=== PATIENT | female | born 1995 | race Two or more races ===

== ENCOUNTER 2018-04-09 16:41 | Emergency (ER) | payer SELFPAY ==
[2018-04-09] MEDS ORDERED: IPRATROPIUM/ALBUTEROL 0.5-2.5 MG/3 ML AMPUL NEB ONE (17:14)
[2018-04-09] MEDS ORDERED: PREDNISONE 20 MG TABLET PO ONE (17:15)
--- NOTE | 2018-04-09 18:14 | RADIOLOGY REPORT (SQ) ---
EXAM DESCRIPTION: CHEST 2 VIEWS COMPLETED DATE/TIME: 04/09/2018 5:33 pm REASON FOR STUDY: cough, fever, eval for pneumonia COMPARISON: None. EXAM PARAMETERS: NUMBER OF VIEWS: two views TECHNIQUE: Digital Frontal and Lateral radiographic views of the chest acquired. RADIATION DOSE: NA LIMITATIONS: none FINDINGS: LUNGS AND PLEURA: No opacities, masses or pneumothorax. No pleural effusion. MEDIASTINUM AND HILAR STRUCTURES: No masses or contour abnormalities. HEART AND VASCULAR STRUCTURES: Heart normal size. No evidence for failure. BONES: No acute findings. HARDWARE: None in the chest. OTHER: No other significant finding. IMPRESSION: NO ACUTE RADIOGRAPHIC FINDING IN THE CHEST. TECHNICAL DOCUMENTATION: JOB ID: [id number] [email or web address]- All Rights Reserved Reading location - IP/workstation name: [email or web address]
--- NOTE | 2018-04-09 19:20 | ER Document Report ---
HPI - HPI Time Seen by Provider: 04/09/18 17:07 Pain Level: 2 - ROS Notes: Patient is an otherwise healthy 22-year-old female presenting with multiple complaints. Patient reports productive cough over the last 2 weeks with development of sore throat and fever over the last 2-3 days. Patient denies any fever today. Patient reports pain with swallowing however she is able to swallow. Patient reports history of strep throat. is going on today. Patient denies any history of asthma - CONSTITUTIONAL Constitutional: REPORTS: Fever, Chills - EENT EENT: REPORTS: Sore Throat - RESPIRATORY Respiratory: REPORTS: Coughing - REPRODUCTIVE Reproductive: DENIES: : Past Medical History - General Information source: Patient - Social History Smoking Status: Current Some Day Smoker Frequency of alcohol use: Occasional Drug Abuse: None Family History: None Patient has suicidal ideation: No Patient has homicidal ideation: No - Medical History Medical History: Negative Renal/ Medical History: Denies: Hx Peritoneal Dialysis Past Surgical History: Reports: Hx Abdominal Surgery, Hx Tonsillectomy - Immunizations Immunizations up to date: Yes Vertical Provider Document - CONSTITUTIONAL Notes: PHYSICAL EXAMINATION: GENERAL: Well-appearing, well-nourished and in no acute distress. HEAD: Atraumatic, normocephalic. EYES: Pupils equal round extraocular movements intact, conjunctiva are normal. ENT: Nares patent, throat mildly erythematous with no evidence of abscess. NECK: Normal range of motion, mildly swollen cervical lymph nodes. LUNGS: No respiratory distress, mild expiratory wheezing noted bilaterally. Musculoskeletal: Normal range of motion NEUROLOGICAL: Normal speech, normal gait. PSYCH: Normal mood, normal affect. SKIN: Warm, Dry, normal turgor, no rashes or lesions noted. Course - Re-evaluation Re-evalutation: Rapid strep is negative. Chest x-ray negative for any acute findings. Patient reports some improvement after breathing treatment. Patient was offered inject ion of Decadron however patient declined it stating that she is deathly afraid of needles. Patient given dose of prednisone and given prescription for albuterol and Tessalon. - Vital Signs Vital signs: Temp Pulse Resp BP Pulse Ox 98.9 F 94 14 147/80 H 100 04/09/18 16:56 04/09/18 16:56 04/09/18 16:56 04/09/18 16:56 04/09/18 16:56 Discharge - Discharge Clinical Impression: Sore throat Condition: Stable Disposition: HOME, SELF-CARE Additional Instructions: SORE THROAT: Sore throats may be caused by viruses, bacteria, or fungi. Most are due to a virus, and must get better on their own. Bacterial sore throats, particularly those due to "strep," need treatment with antibiotics. If an antibiotic is prescribed, be sure to take the medication for a full 10 days. Failure to take the antibiotic can result in complications such as rheumatic fever. Sometimes, an injection of antibiotics is given instead of pills or liquid. This single "shot" is equal in effectiveness to the oral medication. To relieve symptoms, take acetaminophen for pain. Sip clear liquids frequently, or eat popsicles or ice chips. Anesthetic sprays or lozenges may help. Make sure the air in the room is not too dry. Avoid using decongestants or antihistamines. Call the doctor if there is no improvement in two days, or if you have difficulty breathing, increasing throat pain, high fever, rash, or frequent vomiting. STEROID MEDICATION: You have been given a medicine of the cortisone/steroid class. This medication is used to control inflammation or allergy. It is usually only given for a short period of time, until the acute process subsides. There are usually no side effects from short-term use of cortisone-like medications. Some persons feel an increased sense of well-being and are not sleepy at bedtime. Long-term use of cortisone medications is best avoided, unless required for a severe condition. If your condition does not remit, or relapses after the course of corticosteroid medication, you should consult your physician. FOLLOW-UP CARE: If you have been referred to a physician for follow-up care, call the physicians office for an appointment as you were instructed or within the next two days. If you experience worsening or a significant change in your symptoms, notify the physician immediately or return to the Emergency Department at any t [place] for re-evaluation. Your rapid strep test today was negative. This will be sent for culture, if any abnormality comes of it we will call you in the next 2-3 days. Please continue to take Tylenol or ibuprofen for your throat pain. The steroids that you are being started on will help, take 1 dose each day for the next 4 days starting tomorrow as you were already given the first dose today. Use the cough medicine as needed. Drink plenty of fluids. Prescriptions: Benzonatate [Tessalon Perles 100 mg Capsule] 100 mg PO Q8HP PRN #40 capsule PRN Reason: Albuterol Sulfate [Proair HFA Inhalation Aerosol 8.5 gm MDI] 1 puff IH Q4 PRN #1 mdi PRN Reason: Prednisone [Deltasone 20 mg Tablet] 3 tab PO DAILY 4 Days #12 tablet Forms: Return to Work
[2018-04-09] MEDS ORDERED: ONDANSETRON ODT 4 MG TAB (6 TAB/ER DISP) PO PRN (19:40)
[2018-04-09] MEDS ORDERED: ALBUTEROL SULFATE HFA (90 MCG/PUFF) 8 GM MDI (1 MDI/ER DISP) IH ONE (19:41)
[2018-04-09 19:50] VITALS: BP 126/66
== END 2018-04-09 19:56 | disposition home or self-care (01) ==
LOC: ER 16:41
DX: J02.9 Acute pharyngitis, unspecified (principal); R05 Cough; F17.200 Nicotine dependence, unspecified, uncomplicated
CPT/HCPCS: 94640; 99283; 87070; 87880; 71046; J7512; J3490; J7620

== ENCOUNTER 2018-05-15 10:52 | Emergency (ER) | payer OTHER ==
[2018-05-15] MEDS ORDERED: DIPH/PERTUSS(ACELL)/TETANUS VAC/PF 0.5 ML SYR (>=10YO) IM ONE (11:36)
--- NOTE | 2018-05-15 11:41 | ER Document Report ---
HPI - HPI Time Seen by Provider: 05/15/18 11:23 Pain Level: 2 Notes: Patient is a 22-year-old female no significant past medical history who presents to emergency department complaining of a mike nail going through her boot into her right foot when at work prior to arrival. Patient states that she did have some minimal bleeding and has some associated mild soreness, but is otherwise able to ambulate. Patient states that the nail was relatively clean and was intact when she it came out. Denies drug allergies. No other concerns or complaints. Her last tetanus was believed to be over 5 years ago. Denies any headache, fever, URI, sore throat, chest pain, palpitations, syncope, cough, shortness of breath, wheeze, dyspnea, abdominal pain, nausea/vomiting/diarrhea, urinary retention, dysuria, hematuria, loss of control of bowel or bladder, numbness/tingling, muscle paralysis/weakness, or rash. - ROS Systems Reviewed and Negative: Yes All other systems reviewed and negative - REPRODUCTIVE Reproductive: DENIES: : Past Medical History - Social History Smoking Status: Never Smoker Family History: None Renal/ Medical History: Denies: Hx Peritoneal Dialysis Past Surgical History: Reports: Hx Abdominal Surgery, Hx Tonsillectomy - Immunizations Immunizations up to date: Yes Vertical Provider Document - CONSTITUTIONAL Agree With Documented VS: Yes Notes: PHYSICAL EXAMINATION: GENERAL: Well-appearing, well-nourished and in no acute distress. LUNGS: Breath sounds clear to auscultation bilaterally and equal. No wheezes rales or rhonchi. HEART: Regular rate and rhythm without murmurs, rubs, gallops. Musculoskeletal: Lt foot/ankle: FROM to passive/active. Strength 5+/5. N/V intact distal. No bony tenderness of the foot/ankle. Achilles intact. There is a very small puncture site noted to the plantar medial foot without obvious foreign body, purulence, erythema, or streaking. Extremities: No cyanosis, clubbing, or edema b/l. Peripheral pulses 2+. Capillary refill less than 3 seconds. NEUROLOGICAL: Normal speech, limping gait. Normal sensory, motor exams PSYCH: Normal mood, normal affect. SKIN: Warm, Dry, normal turgor, no rashes or lesions noted. - INFECTION CONTROL TRAVEL OUTSIDE OF THE [place] IN LAST 30 DAYS: No Course - Re-evaluation Re-evalutation: 05/15/18 11:39 Patient is an afebrile, well-hydrated, 22-year-old female who presents to the ED with a puncture wound to the rt plantar foot. Vitals are acceptable without any significant tachycardia, tachypnea, or hypoxia. PE is otherwise unremarkable for any neurovascular compromise, obvious tendon/ligament rupture, obvious fracture/dislocation, septic joint, obvious retained foreign body. Tdap given today. Patient is nontoxic-appearing. Patient is able to ambulate and weight- bear although she is limping. No other labs or imaging warranted at this time based on H&P. Risk/benefit reviewed of cipro. Pt requests for prophylaxis at this time. Conservative measures otherwise for symptoms. Recheck with your PCM in 3-5 days. Consider consult podiatry. Return to the ED with any worsening/concerning symptoms otherwise as reviewed in discharge. Patient is in agreement. - Vital Signs Vital signs: Temp Pulse Resp BP Pulse Ox 98.2 F 73 16 123/74 99 05/15/18 11:05 05/15/18 11:05 05/15/18 11:05 05/15/18 11:05 05/15/18 11:05 Discharge - Discharge Clinical Impression: Puncture wound of right foot Qualifiers: Encounter type: initial encounter Qualified Code(s): S91.331A - Puncture wound without foreign body, right foot, initial encounter Condition: Stable Disposition: HOME, SELF-CARE Instructions: Tetanus Immunization Given ([facility]), Soap Cleansing ([facility]), Antibiotic Ointment Protection ([facility]), Puncture Wound ([facility]), Ciprofloxacin ([facility]) Additional Instructions: Keep the skin clean Wash with soap and water Tylenol/ibuprofen if needed Triple antibiotic ointment daily Take medication as directed Monitor for any worsening symptoms Recheck with your PCM in 3-5 days Consider consult with podiatry for ongoing/worsening symptoms Return to the ED with any worsening symptoms and/or development of fever, head ache, chest pain, palpitations, syncope, shortness of breath, trouble breathing, abdominal pain, n/v/d, abscess, purulent discharge, red streaks, worsening swelling, or other worsening symptoms that are concerning to you. Prescriptions: Ciprofloxacin HCl [Cipro 500 mg Tablet] 500 mg PO BID #14 tablet Referrals: KITA PINEDA DPM [ACTIVE STAFF] - Follow up as needed
[2018-05-15 12:25] VITALS: BP 122/60
== END 2018-05-15 12:25 | disposition home or self-care (01) ==
LOC: ER 10:52
DX: S91.331A Puncture wound without foreign body, right foot, initial encounter (principal); W45.0XXA Nail entering through skin, initial encounter; Y99.0 Civilian activity done for income or pay; Z23 Encounter for immunization
CPT/HCPCS: 90471; 90715; 99283

== ENCOUNTER 2019-05-08 13:24 | Emergency (ER) | payer SELFPAY ==
[2019-05-08] MEDS ORDERED: ONDANSETRON 4 MG TAB.RAPDIS PO ONE (13:31)
--- NOTE | 2019-05-08 13:33 | ER Document Report ---
ED Medical Screen (RME) - General Chief Complaint: Nausea Stated Complaint: NAUSEA Time Seen by Provider: 05/08/19 13:29 Notes: 23-year-old female presents for nausea for the past 2 days with mild abdominal pain. Patient states she is currently on the last day of her period however states before she started her period she did have a lot of vaginal discharge and was concerned about an STD. Patient also states dysuria. Patient denies any vom iting, fever, chills. Abd soft nontender. I have greeted and performed a rapid initial assessment of this patient. A comprehensive ED assessment and evaluation of the patient, analysis of test res ults and completion of the medical decision making process with be conducted by additional ED providers. TRAVEL OUTSIDE OF THE [place] IN LAST 30 DAYS: No - Related Data Allergies/Adverse Reactions: No Known Allergies Allergy (Verified 05/15/18 10:52) Past Medical History Renal/ Medical History: Denies: Hx Peritoneal Dialysis Past Surgical History: Reports: Hx Abdominal Surgery, Hx Tonsillectomy - Immunizations Immunizations up to date: Yes Physical Exam - Vital signs Vitals: Temp Pulse Resp BP Pulse Ox 98.0 F 85 20 142/77 H 100 05/08/19 13:28 05/08/19 13:28 05/08/19 13:28 05/08/19 13:28 05/08/19 13:28 Course - Vital Signs Vital signs: Temp Pulse Resp BP Pulse Ox 98.0 F 85 20 142/77 H 100 05/08/19 13:28 05/08/19 13:28 05/08/19 13:28 05/08/19 13:28 05/08/19 13:28
[2019-05-08 14:19] LABS: APPEARANCE,URINE CLEAR; BILIRUBIN,URINE NEGATIVE (NEGATIVE); COLOR,URINE YELLOW; GLUCOSE, URINE NEGATIVE (NEGATIVE); KETONES,URINE NEGATIVE (NEGATIVE); PROTEIN,URINE NEGATIVE (NEGATIVE); URINE SPECIFIC GRAVITY 1.023
--- NOTE | 2019-05-08 15:12 | ER Document Report ---
HPI - HPI Patient complains to provider of: Urinary frequency Time Seen by Provider: 05/08/19 13:29 Onset: Other Pain Level: 2 Context: 23-year-old female presents emergency department with complaints of urinary frequency and vaginal itch with some vaginal discharge and odor. She also reports she has waves of nausea that comes and goes. Denies vomiting. Reports she had diarrhea 2 days ago, a little bit, none since. Also reports fever 2 days ago of 99 but none since. Denies pain with void. Reports she has not been sexually active for the past 3 months. Patient also reports she had some abdominal cramps but that was when she had her menses which she just finished. Associated Symptoms: None Exacerbated by: Denies Relieved by: Denies Similar symptoms previously: No Recently seen / treated by doctor: No - REPRODUCTIVE Reproductive: DENIES: : Past Medical History - General Information source: Patient Last Menstrual Period: just finished - Social History Smoking Status: Current Every Day Smoker Cigarette use (# per day): Yes - vaping now Chew tobacco use (# tins/day): No Frequency of alcohol use: Social Drug Abuse: None Occupation: [employer] Family History: None Patient has suicidal ideation: No Patient has homicidal ideation: No - Medical History Medical History: Negative Renal/ Medical History: Denies: Hx Peritoneal Dialysis Past Surgical History: Reports: Hx Abdominal Surgery - tummy tuck, Hx Tonsi llectomy - Immunizations Immunizations up to date: Yes Vertical Provider Document - CONSTITUTIONAL Agree With Documented VS: Yes Exam Limitations: No Limitations General Appearance: WD/WN, No Apparent Distress - INFECTION CONTROL TRAVEL OUTSIDE OF THE [place] IN LAST 30 DAYS: No - HEENT HEENT: Atraumatic, Normocephalic. negative: Conjuctival Injection - NECK Neck: Supple - RESPIRATORY Respiratory: No Respiratory Distress - CARDIOVASCULAR Cardiovascular: Regular Rate - MUSCULOSKELETAL/EXTREMETIES Musculoskeletal/Extremeties: KYLIE KWAN - NEURO Level of Consciousness: Awake, Alert, Appropriate Motor/Sensory: No Motor Deficit - DERM Integumentary: Warm, Dry Course - Re-evaluation Re-evalutation: 05/08/19 15:11 Laboratory 05/08/19 13:40 Urine Color YELLOW Urine Appearance CLEAR Urine pH 5.0 Ur Specific [place] 1.023 Urine Protein NEGATIVE Urine Glucose (UA) NEGATIVE Urine Ketones NEGATIVE Urine Blood SMALL H Urine Nitrite (Reflex) NEGATIVE Urine Bilirubin NEGATIVE Urine Urobilinogen 2.0 H Leukocyte Esterase Rfl NEGATIVE Urine RBC (Auto) 2 Urine WBC (Reflex) 4 Squamous Epi Cells Auto 1 Urine Mucus (Auto) RARE Urine Ascorbic Acid NEGATIVE 05/08/19 16:15 Laboratory 05/08/19 05/08/19 05/08/19 13:40 13:40 15:20 Urine Color YELLOW Urine Appearance CLEAR Urine pH 5.0 Ur Specific [place] 1.023 Urine Protein NEGATIVE Urine Glucose (UA) NEGATIVE Urine Ketones NEGATIVE Urine Blood SMALL H Urine Nitrite (Reflex) NEGATIVE Urine Bilirubin NEGATIVE Urine Urobilinogen 2.0 H Leukocyte Esterase Rfl NEGATIVE Urine RBC (Auto) 2 Urine WBC (Reflex) 4 Squamous Epi Cells Auto 1 Urine Mucus (Auto) RARE Urine Ascorbic Acid NEGATIVE Urine HCG, Qual NEGATIVE Epi Cells (Wet Prep) 4+ EPITHELIALS SEEN Bacteria (Wet Prep) 4+ BACTERIA SEEN Trichomonas (Wet Prep) NO TRICHOMONAS SEEN Vaginal WBC FEW WBCS SEEN Vaginal Yeast NO YEAST SEEN 05/08/19 17:33 Patient is positive for gonorrhea and chlamydia. I attempted to contact patient at [phone] without success. Her voicemail was full. 05/08/19 18:59 Patient contacted by phone and instructed on positive for gonorrhea chlamydia. She was instructed to return for treatment. - Vital Signs Vital signs: Temp Pulse Resp BP Pulse Ox 98.0 F 85 20 142/77 H 100 05/08/19 13:28 05/08/19 13:28 05/08/19 13:28 05/08/19 13:28 05/08/19 13:28 - Laboratory Laboratory results interpreted by me: 05/08/19 13:40 Urine Blood SMALL H Urine Urobilinogen 2.0 H Procedures - Pelvic Exam Pelvic exam Cultures obtained: Yes Wet prep obtained: Yes Herpes culture obtained: No POC sent to lab: No Foreign body removed: No Bimanual exam performed: Yes Witnessed by: reina Discharge - Discharge Clinical Impression: Urinary frequency, Nausea, Bacterial vaginosis Condition: Stable Disposition: HOME, SELF-CARE Instructions: Metronidazole ([facility]), [facility] [place] Vaginosis, Bacterial ([facility]) Additional Instructions: *You have been evaluated for Urinary frequency, Bacterial vaginosis *Take medication as prescribed for BV *Your STD cultures are pending. Should they return positive you will be contacted to return for treatment. You may also call the [facility] nurse at [phone] for your results Saturday through Saturday 8 AM to 4 PM *Follow up with your HEALTH MANAGEMENT CONSULTANT or the health department for recheck *Return to ED for worsening condition, changes, needs Monitor your blood pressure. Your blood pressure was elevated today. This may be because you were anxious, in pain or because you need medication. It is important to follow up with your primary care provider for full evaluation. Prescriptions: Metronidazole [Flagyl 500 mg Tablet] 500 mg PO BID #14 tablet Forms: Elevated Blood Pressure, Return to Work
[2019-05-08 15:39] LABS: T.VAGINALIS (WET MOUNT) NO TRICHOMONAS SEEN; YEAST (WET MOUNT) NO YEAST SEEN
[2019-05-08 15:40] LABS: BACTERIA (WET MOUNT) 4+ BACTERIA SEEN; EPITHELIALS (WET MOUNT) 4+ EPITHELIALS SEEN; WBCS (WET MOUNT) FEW WBCS SEEN
[2019-05-08 16:19] VITALS: BP 135/67
[2019-05-08 17:09] LABS: CHLAM PCR DETECTED (NOT DETECT)
== END 2019-05-08 16:18 | disposition home or self-care (01) ==
LOC: ER 13:24
DX: N76.0 Acute vaginitis (principal); B96.89 Other specified bacterial agents as the cause of diseases classified elsewhere; R35.0 Frequency of micturition; R11.0 Nausea; F17.290 Nicotine dependence, other tobacco product, uncomplicated
CPT/HCPCS: 87210; 81025; 81001; 87491; 87591; S0119; 99283

== ENCOUNTER 2019-05-08 19:48 | Emergency (ER) | payer SELFPAY ==
[2019-05-08 19:59] VITALS: BP 132/87
[2019-05-08] MEDS ORDERED: LIDOCAINE 1% INJ-PF (10 MG/ML) 30 ML SDV NEB ONE (20:23)
[2019-05-08] MEDS ORDERED: AZITHROMYCIN 250 MG TABLET PO ONE (20:23)
[2019-05-08] MEDS ORDERED: CEFTRIAXONE INJ 250 MG VIAL IM ONE (20:23)
--- NOTE | 2019-05-08 20:27 | ER Document Report ---
ED General - General Chief Complaint: Vaginal Discharge Stated Complaint: CHECKUP Time Seen by Provider: 05/08/19 20:23 Primary Care Provider: [facility] [Provider Group] - Follow up as needed [facility] [Provider Group] - Follow up as needed Notes: 23-year-old female presents for treatment of gonorrhea/chlamydia. Patient was seen in the ER earlier today and was called back to due to positive test. Patient denies any complaints at this time. TRAVEL OUTSIDE OF THE [place] IN LAST 30 DAYS: No - Related Data Allergies/Adverse Reactions: No Known Allergies Allergy (Verified 05/08/19 13:32) Past Medical History - General Information source: Patient - Social History Smoking Status: Unknown if Ever Smoked Family History: None Renal/ Medical History: Denies: Hx Peritoneal Dialysis Past Surgical History: Reports: Hx Abdominal Surgery - tummy tuck, Hx Tonsillectomy - Immunizations Immunizations up to date: Yes Review of Systems - Review of Systems Notes: Constitutional: Negative for fever. HENT: Negative for sore throat. Eyes: Negative for visual changes. Cardiovascular: Negative for chest pain. Respiratory: Negative for shortness of breath. Gastrointestinal: Negative for abdominal pain, vomiting or diarrhea. Genitourinary: Negative for dysuria. Musculoskeletal: Negative for back pain. Skin: Negative for rash. Neurological: Negative for headaches, weakness or numbness. 10 point ROS negative except as marked above and in HPI. Physical Exam - Vital signs Vitals: Temp Pulse Resp BP Pulse Ox 98.7 F 84 18 132/87 H 100 05/08/19 19:57 05/08/19 19:57 05/08/19 19:57 05/08/19 19:57 05/08/19 19:57 - Notes Notes: GENERAL: Well-appearing, well-nourished and in no acute distress. HEAD: Atraumatic, normocephalic. EYES: Extraocular movements intact, sclera anicteric, conjunctiva are normal. NECK: Normal range of motion, supple without lymphadenopathy or JVD. EXTREMITIES: Normal range of motion, no pitting or edema. No clubbing or cyanosis. NEUROLOGICAL: Cranial nerves II through XII grossly intact. Normal speech, normal gait. PSYCH: Normal mood, normal affect. SKIN: Warm, Dry, normal turgor, no rashes or lesions noted. Course - Re-evaluation Re-evalutation: 05/08/19 21:56 Nontoxic well appearing 23 y/o female presents back to ER for treatment for gonorrhea/chlamydia. Pt was assessed earlier in ER and her tests came back positive. Pt treated with Rocephin and azithromycin. Return precautions given and follow up with health department and obgyn. Pt voices understanding and agrees with plan of care. - Vital Signs Vital signs: Temp Pulse Resp BP Pulse Ox 98.7 F 84 18 132/87 H 100 05/08/19 19:57 05/08/19 19:57 05/08/19 19:57 05/08/19 19:57 05/08/19 19:57 Discharge - Discharge Clinical Impression: Gonorrhea, Chlamydia Condition: Stable Disposition: HOME, SELF-CARE Instructions: Chlamydia (OM), Gonorrhea ([facility]) Additional Instructions: Your positive for gonorrhea and chlamydia today. You are also treated for both today in the ER. Please follow-up with the health department for further STD checks. Return immediately to ER if you start having any worsening symptoms, including abdominal pain, worsening vaginal discharge, pelvic pain, nausea/vomiting, fever, or any other symptoms that are concerning to you. Referrals: [facility] [Provider Group] - Follow up as needed [facility] [Provider Group] - Follow up as needed
== END 2019-05-08 20:40 | disposition home or self-care (01) ==
LOC: ER 19:48
DX: A54.9 Gonococcal infection, unspecified (principal); A74.9 Chlamydial infection, unspecified
CPT/HCPCS: J3490; J0696; 96372; 99283

== ENCOUNTER → 2019-12-03 | Outpatient (CLI) | payer SELFPAY ==
--- NOTE | 2019-12-03 16:20 | RADIOLOGY REPORT (SQ) ---
EXAM DESCRIPTION: U/S [id number] TRNABD 1GES W/ODOP IMAGES COMPLETED DATE/TIME: 12/03/2019 3:59 pm REASON FOR STUDY: Z34.81 ENCOUNTER FOR SUPRVSN OF NORMAL , FIRST TRIMESTER Z34.81 ENCOUNTE R FOR SUPRVSN OF NORMAL , FIRST TRIM COMPARISON: 11/12/2019 TECHNIQUE: Transvaginal static and realtime grayscale images acquired of the pelvis. Additional suzette cted spectral and color Doppler images recorded. All images stored on PACs. bHCG: Unknown CLINICAL DATES: LMP 09/25/2028 weeks 5 days LIMITATIONS: None. FINDINGS: FETUS: Single Living intrauterine . ULTRASOUND EGA: 9 weeks 2 days ULTRASOUND ALBA: 07/05/2020 EFW: Not applicable less than 20 weeks. CRL: 2.6 cm. FHR: No heart motion is seen. SURVEY: Too early to assess. AMNIOTIC FLUID: Adequate amount. PLACENTA: Not yet developed due to early gestation. SUBCHORIONIC BLEED: Yes SIZE OF BLEED: 2.1 x 0.8 x 0.9 cm. UTERUS: No masses. No anomalies. CERVICAL LENGTH: 2.9 cm. There is small amount of fluid in the endocervical canal. Closed. RIGHT ADNEXA: Ovary not seen. No adnexal free fluid. No adnexal masses. LEFT ADNEXA: Ovary not seen. No adnexal free fluid. No adnexal masses. FREE FLUID: None. OTHER: No other significant finding. IMPRESSION: Intrauterine gestation of 9 weeks 2 days with no heart motion. Apparent dem ise. Trimester of : First trimester - 0 to 13 weeks. TECHNICAL DOCUMENTATION: JOB ID: [id number] [email or web address]- All Rights Reserved rev-08/16 Reading location - IP/workstation name: [email or web address]
== END ==
LOC: RAD 14:58
PROVIDERS: ATTEND Midwife
DX: Z34.81 Encounter for supervision of other normal pregnancy, first trimester (principal)
CPT/HCPCS: 76801

== ENCOUNTER 2019-12-12 00:52 | Emergency (ER) | payer MEDICAID ==
--- NOTE | 2019-12-12 01:10 | ER Document Report ---
ED Medical Screen (RME) - General Chief Complaint: Vag Bleeding, +preg <12wks Stated Complaint: VAGINAL BLEEDING,LOWER BACK PAIN Time Seen by Provider: 12/12/19 01:07 Primary Care Provider: MARK WILHELM CNM [Primary Care Provider] - Follow up as needed Notes: HPI: 24-year-old female who is a A0 presenting for evaluation of worsened vaginal bleeding with pelvic pain and back pain today. Patient states she is approximately 10 weeks gestation by ultrasound. Patient states she was seen a week ago and there was a question of whether there would be no heartbeat and whether she had a miscarriage or demise. She had not had bleeding until today. Has not yet followed back up with her [employer]. Patient states that she is only seen bleeding from the vagina when wiping PHYSICAL EXAMINATION: EDGE BASTER exam deferred in triage. Mild tenderness of the suprapubic region on palpation I have greeted and performed a rapid initial assessment of this patient. A comprehensive ED assessment and evaluation of the patient, analysis of test results and completion of medical decision making process will be conducted by an additional ED providers. TRAVEL OUTSIDE OF THE [place] IN LAST 30 DAYS: No - Related Data Allergies/Adverse Reactions: No Known Allergies Allergy (Verified 11/12/19 14:51) Home Medications: . active immune builder Past Medical History - Social History Chew tobacco use (# tins/day): No Frequency of alcohol use: None Drug Abuse: None Renal/ Medical History: Denies: Hx Peritoneal Dialysis Past Surgical History: Reports: Hx Abdominal Surgery - tummy tuck, Hx Tonsillectomy - Immunizations Immunizations up to date: Yes Physical Exam - Vital signs Vitals: Temp Pulse Resp BP Pulse Ox 99.2 F 92 20 137/76 H 97 12/12/19 00:53 12/12/19 00:53 12/12/19 00:53 12/12/19 00:53 12/12/19 00:53 Course - Vital Signs Vital signs: Temp Pulse Resp BP Pulse Ox 99.2 F 92 20 137/76 H 97 12/12/19 00:53 12/12/19 00:53 12/12/19 00:53 12/12/19 00:53 12/12/19 00:53 Doctor's Discharge - Discharge Referrals: MARK WILHELM CNM [Primary Care Provider] - Follow up as needed
[2019-12-12 01:36] LABS: ABSOLUTE EOSINOPHILS # (AUTO) 0.1 10^3/uL (0.0-0.6); ABSOLUTE MONOCYTES (AUTO) 0.5 10^3/uL (0.1-1.4); ABSOLUTE NEUT (AUTO) 3.9 10^3/uL (1.7-8.2); BASOPHILS % (AUTO) 0.3 % (0-2); HEMATOCRIT 38.8 % (36.0-47.0); HEMOGLOBIN 13.6 g/dL (12.0-15.5); LYMPHOCYTES % (AUTO) 30.6 % (13-45); MEAN CORPUSCULAR HEMOGLOBIN 33.3 pg (27.0-33.4); MEAN CORPUSCULAR VOLUME 95 fl (80-97); MONOCYTES % (AUTO) 7.9 % (3-13); PLATELET COUNT 272 10^3/uL (150-450); RED BLOOD COUNT 4.08 10^6/uL (3.72-5.28); RED CELL DISTRIBUTION WIDTH 12.1 % (11.5-14.0); SEGMENTED NEUTROPHILS % (AUTO) 59.2 % (42-78); TOTAL CELLS COUNTED % (AUTO) 100 %; WHITE BLOOD COUNT 6.6 10^3/uL (4.0-10.5)
--- NOTE | 2019-12-12 01:45 | ER Document Report ---
ED GI/ - General Chief Complaint: Vag Bleeding, +preg <12wks Stated Complaint: VAGINAL BLEEDING,LOWER BACK PAIN Time Seen by Provider: 12/12/19 01:07 Primary Care Provider: MARK WILHELM CNM [NO LOCAL MD] - Follow up in 3-5 days (as scheduled ) Mode of Arrival: Ambulatory Information source: Patient Notes: 24-year-old 2 para 1 female who states she is approximately 11 weeks presents to the emergency room complaining of vaginal bleeding that started last night. Patient states she has not gone through any pads in the past 24 hours she only notices blood when she urinates. Mild cramping, no nausea, no vomiting, no trauma. Patient states she was seen here a few weeks ago for vaginal bleeding and states ultrasound showed that she was 6 weeks . Patient states last ultrasound there was question of demise versus miscarriage versus an intrauterine , she has not had any follow- up OB care. Patient states she did have an ultrasound approximately 1 week ago that was ordered by the health department. She states they told her that there was no heartbeat and that someone would follow-up with her however she states no one ever followed up with her. States she does have an appointment on Saturday with an INDUSTRIAL REAL ESTATE AGENT. TRAVEL OUTSIDE OF THE [place] IN LAST 30 DAYS: No - Related Data Allergies/Adverse Reactions: No Known Allergies Allergy (Verified 11/12/19 14:51) Home Medications: . active immune builder Past Medical History - General Information source: Patient - Social History Smoking Status: Former Smoker Chew tobacco use (# tins/day): No Frequency of alcohol use: None Drug Abuse: None Family History: None Renal/ Medical History: Denies: Hx Peritoneal Dialysis Past Surgical History: Reports: Hx Abdominal Surgery - tummy tuck, Hx Tonsillectomy - Immunizations Immunizations up to date: Yes Review of Systems - Review of Systems Constitutional: No symptoms reported Cardiovascular: No symptoms reported Respiratory: No symptoms reported Gastrointestinal: No symptoms reported Female Genitourinary: , Vaginal bleeding, Other - Pelvic cramping Musculoskeletal: No symptoms reported Skin: No symptoms reported Neurological/Psychological: No symptoms reported -: Yes All other systems reviewed and negative Physical Exam - Vital signs Vitals: Temp Pulse Resp BP Pulse Ox 99.2 F 92 20 137/76 H 97 12/12/19 00:53 12/12/19 00:53 12/12/19 00:53 12/12/19 00:53 12/12/19 00:53 - General General appearance: Appears well, Alert In distress: Mild - Respiratory Respiratory status: No respiratory distress Chest status: Nontender Breath sounds: Normal Chest palpation: Normal - Cardiovascular Rhythm: Regular Heart sounds: Normal auscultation Murmur: No - Abdominal Inspection: Normal Distension: No distension Bowel sounds: Normal Tenderness: Nontender Organomegaly: No organomegaly - Back Back: Normal, Nontender. No: CVA tenderness - Neurological Neuro grossly intact: Yes Cognition: Normal Orientation: AAOx4 Laurel Coma Scale Eye Opening: Spontaneous [place] Coma Scale Verbal: Oriented [place] Coma Scale Motor: Obeys Commands Laurel Coma Scale Total: 15 Speech: Normal Motor strength normal: LUE, RUE, LLE, RLE Sensory: Normal - Skin Skin Temperature: Warm Skin Moisture: Dry Skin Color: Normal Course - Re-evaluation Re-evalutation: 12/12/19 03:45 Patient is resting comfortably she is pain-free. Denies any active vaginal bleeding. All test results were reviewed with the patient. Counseled patient that there is no heartbeat and that the baby stopped growing at approximately 8 weeks. Patient does have an appointment this week with an INDUSTRIAL REAL ESTATE AGENT. Patient does state that she was seen by the health department a week ago and was told that there was no heartbeat but they did not fully explain to her what that meant. State and discussed with patient at length about demise and that she will pass the baby on her own. Counseled on the importance of keeping her appointmen t with her INDUSTRIAL REAL ESTATE AGENT this week. Patient was given strict return to the emergency room guidelines. Return for any new or worsening symptoms. All questions were answered. Patient verbalized understanding and agrees with plan of care. - Vital Signs Vital signs: Temp Pulse Resp BP Pulse Ox 99.0 F 108 H 16 154/85 H 100 12/12/19 03:57 12/12/19 03:57 12/12/19 03:57 12/12/19 03:57 12/12/19 03:57 - Laboratory Result Diagrams: 12/12/19 01:15 12/12/19 01:15 Laboratory results interpreted by me: 12/12/19 12/12/19 01:15 01:50 Calcium 10.3 H ALT 43 H Beta HCG, Quant 2280.20 H Urine Blood SMALL H Urine Urobilinogen 2.0 H - Diagnostic Test Radiology reviewed: Reports reviewed Discharge - Discharge Clinical Impression: demise Condition: Stable Disposition: HOME, SELF-CARE Instructions: Miscarriage Impending ([facility]) Additional Instructions: Tylenol as needed for pain. Follow-up with your INDUSTRIAL REAL ESTATE AGENT as scheduled. Return to the emergency room for any new or worsening symptoms. Referrals: MARK WILHELM CNM [NO LOCAL MD] - Follow up in 3-5 days (as scheduled )
[2019-12-12 01:49] LABS: ALKALINE PHOSPHATASE 69 U/L (38-126); ANION GAP 10 (5-19); ASPARTATE AMINO TRANSFERASE 34 U/L (14-36); BILIRUBIN,DIRECT 0.2 mg/dL (0.0-0.4); BILIRUBIN,TOTAL 0.6 mg/dL (0.2-1.3); BLOOD UREA NITROGEN 11 mg/dL (7-20); CALCIUM 10.3 mg/dL (8.4-10.2); CARBON DIOXIDE 23 mmol/L (22-30); CHLORIDE 105 mmol/L (98-107); GLUCOSE 109 mg/dL (75-110); POTASSIUM 4.2 mmol/L (3.6-5.0); TOTAL PROTEIN 6.7 g/dL (6.3-8.2)
[2019-12-12 02:13] LABS: APPEARANCE,URINE CLOUDY; BILIRUBIN,URINE NEGATIVE (NEGATIVE); COLOR,URINE YELLOW; GLUCOSE, URINE NEGATIVE (NEGATIVE); KETONES,URINE NEGATIVE (NEGATIVE); LEUKOCYTE ESTERASE,URINE NEGATIVE (NEGATIVE); NITRITE,URINE NEGATIVE (NEGATIVE); PROTEIN,URINE NEGATIVE (NEGATIVE); URINE SPECIFIC GRAVITY 1.015
--- NOTE | 2019-12-12 03:30 | RADIOLOGY REPORT (SQ) ---
EXAM DESCRIPTION: U/S OB TRANSVAG W/DOPPLER IMAGES COMPLETED DATE/TIME: 12/12/2019 2:08 am REASON FOR STUDY: demise COMPARISON: None. TECHNIQUE: Transvaginal static and realtime grayscale images acquired of the pelvis. Additional suzette cted spectral and color Doppler images recorded. All images stored on PACs. CLINICAL AGE: 10 weeks 5 days BHC,280 LIMITATIONS: None. FINDINGS: UTERUS: Single intrauterine with crown-rump length 2.0 cm. No heart tones . RIGHT ADNEXA: Normal ovary with normal vascular flow. No adnexal free fluid. No adnexal masses. LEFT ADNEXA: Normal ovary with normal vascular flow. No adnexal free fluid. No adnexal masses. FREE FLUID: None. OTHER: No other significant finding. IMPRESSION: demise at 8 weeks. TECHNICAL DOCUMENTATION: JOB ID: [id number] 2010 [employer]- All Rights Reserved Reading location - IP/workstation name: [email or web address]
[2019-12-12 03:59] VITALS: BP 154/85
== END 2019-12-12 03:59 | disposition home or self-care (01) ==
LOC: ER 00:52
DX: O36.4XX0 Maternal care for intrauterine death, not applicable or unspecified (principal); O46.91 Antepartum hemorrhage, unspecified, first trimester; O26.891 Other specified pregnancy related conditions, first trimester; R10.9 Unspecified abdominal pain; R10.2 Pelvic and perineal pain; Z3A.11 11 weeks gestation of pregnancy; Z87.891 Personal history of nicotine dependence
CPT/HCPCS: 36415; 76817; 80053; 81001; 84702; 85025; 93976; 99284

== ENCOUNTER 2020-04-01 15:05 | Emergency (ER) | payer SELFPAY ==
[2020-04-01 15:15] VITALS: BP 151/90
--- NOTE | 2020-04-01 17:00 | ER Document Report ---
ED Medical Screen (RME) - General Stated Complaint: VAGINAL PAIN, PELVIC PAIN Time Seen by Provider: 04/01/20 16:47 Notes: Patient is a G3, P1 24-year-old female presents emergency department with abdominal cramping. Patient states that she had a miscarriage back in November and reports that she is having a similar sensation as when she had her miscarriage before. She states that she does not know if she is having any bleeding, but may have some pink-tinged discharge on toilet paper. States that she is about 10 weeks gestation. Exam: Tender mid lower abdomen. I have greeted and performed a rapid initial assessment of this patient. A comprehensive ED assessment and evaluation of the patient, analysis of test results and completion of medical decision making process will be conducted by an additional ED providers. TRAVEL OUTSIDE OF THE [place] IN LAST 30 DAYS: No - Related Data Allergies/Adverse Reactions: No Known Allergies Allergy (Verified 11/12/19 14:51) Past Medical History Renal/ Medical History: Denies: Hx Peritoneal Dialysis Past Surgical History: Reports: Hx Abdominal Surgery - tummy tuck, Hx Tonsillec jazzy - Immunizations Immunizations up to date: Yes Physical Exam - Vital signs Vitals: Temp Pulse Resp BP Pulse Ox 98.6 F 72 22 H 151/90 H 96 04/01/20 15:13 04/01/20 15:13 04/01/20 15:13 04/01/20 15:13 04/01/20 15:13 Course - Vital Signs Vital signs: Temp Pulse Resp BP Pulse Ox 98.6 F 72 22 H 151/90 H 96 04/01/20 15:13 04/01/20 15:13 04/01/20 15:13 04/01/20 15:13 04/01/20 15:13
--- NOTE | 2020-04-01 17:30 | RADIOLOGY REPORT (SQ) ---
EXAM DESCRIPTION: U/S [id number] TRNABD 1GES W/ODOP IMAGES COMPLETED DATE/TIME: 04/01/2020 2:19 pm REASON FOR STUDY: 10 weeks; abd cramping COMPARISON: None for this TECHNIQUE: Transabdominal static and realtime grayscale images acquired of the pelvis. Additional se lected spectral and color Doppler images recorded. All images stored on PACs. bHCG: Not available. CLINICAL DATES: 10 weeks and 4 days LIMITATIONS: None. FINDINGS: FETUS: Single Living intrauterine . ULTRASOUND EGA: 11 weeks and 0 days ULTRASOUND ALBA: 10/21/2020 EFW: Not applicable less than 20 weeks. CRL: 4.1 cm FHR: 163 beats per minute. SURVEY: Too early to assess. AMNIOTIC FLUID: Adequate amount. PLACENTA: Not yet developed due to early gestation. SUBCHORIONIC BLEED: No. SIZE OF BLEED: Not applicable. UTERUS: No masses. No anomalies. CERVICAL LENGTH: 2.7 cm Closed. RIGHT ADNEXA: Not visualized No adnexal free fluid. No adnexal masses. LEFT ADNEXA: Not visualized. No adnexal free fluid. No adnexal masses. FREE FLUID: None. OTHER: No other significant finding. IMPRESSION: LIVING INTRAUTERINE . EGA 11 weeks and 0 days Trimester of : First trimester - 0 to 13 weeks. TECHNICAL DOCUMENTATION: JOB ID: [id number] [employer]- All Rights Reserved Reading location - IP/workstation name: [email or web address]
== END 2020-04-01 18:19 | disposition left against medical advice (07) ==
LOC: ER 15:05
DX: O26.899 Other specified pregnancy related conditions, unspecified trimester (principal); R10.2 Pelvic and perineal pain; Z3A.00 Weeks of gestation of pregnancy not specified; Z53.20 Procedure and treatment not carried out because of patient's decision for unspecified reasons
CPT/HCPCS: 76801; 99281